=== PATIENT | female | born 1995 | race Caucasian/White ===

== ENCOUNTER 2024-08-06 15:06 | Inpatient (IN) | payer OTHER ==
[~2024-08-06] VITALS: Ht 170.2 cm; Wt 48.5 kg
[2024-08-06] MEDS ORDERED: METOCLOPRAMIDE HCL 10 MG/2 ML VIAL ONE (16:05)
[2024-08-06] MEDS ORDERED: KETOROLAC TROMETHAMINE 15 MG INJ ONE (16:05)
[2024-08-06] MEDS: METOCLOPRAMIDE HCL 10 MG/2 ML VIAL IV ONE (16:18)
[2024-08-06] MEDS: IV NORMAL SALINE 1000 ML BAG IV ONE ×2 (16:18→18:31)
[2024-08-06] MEDS: KETOROLAC TROMETHAMINE 15 MG INJ IVP ONE (16:19)
[2024-08-06 16:22] LABS: BASOPHILS % (AUTO) 0.5 % (0.0-2.0); EOSINOPHILS # (AUTO) 0.1 K/uL (0.0-0.7); EOSINOPHILS % (AUTO) 2.2 % (0.0-7.0); HEMATOCRIT 40.2 % (31.2-41.9); HEMOGLOBIN 13.4 g/dL (10.9-14.3); LYMPHOCYTES # (AUTO) 1.5 K/uL (0.8-4.8); LYMPHOCYTES % (AUTO) 26.5 % (20.5-51.5); MEAN CORPUSCULAR HEMOGLOBIN 31.8 uug (24.7-32.8); MEAN CORPUSCULAR HGB CONC 34 g/dL (32.3-35.6); MONOCYTES # (AUTO) 0.8 K/uL (0.1-1.30); NEUTROPHILS # (AUTO) 3.3 K/uL (1.8-8.9); NEUTROPHILS % (AUTO) 56.8 % (38.5-71.5); PLATELET COUNT (AUTO) 197 K/uL (179-408); RED BLOOD CELL COUNT(AUTO) 4.23 MIL/uL (3.63-4.92); RED CELL DISTRIBUTION WIDTH 12.5 % (12.3-17.7); WHITE BLOOD COUNT (AUTO) 5.8 K/uL (3.8-11.8)
[2024-08-06 16:31] LABS: CALCIUM 8.6 mg/dL (8.5-10.1); CARBON DIOXIDE 31 mmol/L (21-32); CHLORIDE 101 mmol/L (98-107); CREATININE 0.7 mg/dL (0.6-1.3); GLUCOSE 109 mg/dL (74-106); POTASSIUM 4.3 mmol/L (3.5-5.1); SODIUM SERUM 138 mmol/L (136-145); UREA NITROGEN, BLOOD 11 mg/dL (7-18)
[2024-08-06 16:36] LABS: DIFFERENTIAL COMMENT 1
[2024-08-06 16:44] LABS: ALANINE AMINOTRANSFERASE 198 U/L (14-59); ALBUMIN 3.8 g/dL (3.4-5.0); ALKALINE PHOSPHATASE 59 U/L (50-136); ASPARTATE AMINOTRANSFERASE 213 U/L (15-37); BILIRUBIN,DIRECT 0.2 mg/dL (0.0-0.2); BILIRUBIN,TOTAL 0.4 mg/dL (0.2-1.0); NT-PRO BNP 108 pg/mL (0-125)
[2024-08-06] MEDS ORDERED: ACETAMINOPHEN 500 MG TABLET ONE (16:45)
[2024-08-06] MEDS: ACETAMINOPHEN 500 MG TABLET PO ONE (16:47)
[2024-08-06 17:38] LABS: *BILIRUBIN,URIN NEGATIVE (NEGATIVE); *BLOOD, URINE NEGATIVE (NEGATIVE); *CLARITY,URINE CLEAR (CLEAR); *COLOR,URINE YELLOW (YELLOW); *KETONES,URINE NEGATIVE (NEGATIVE); *PROTEIN,URINE NEGATIVE (NEGATIVE); *UROBILINOGEN,URINE 0.2 E.U./dl (NORMAL); LEUKOCYTE ESTERASE ,URINE TRACE (NEGATIVE); NITRITE, URINE NEGATIVE (NEGATIVE); UGLUCOSE NEGATIVE (NEGATIVE)
[2024-08-06] MEDS ORDERED: ONDANSETRON 4 MG/2 ML VIAL ONE (17:51)
[2024-08-06 17:58] LABS: BACTERIA,URINE MODERATE /HPF (NONE SEEN); SQUAMOUS EPITHELIAL CELL,UR MODERATE /HPF (NONE SEEN); WBC,URINE 0-3 /HPF (0-3)
[2024-08-06] MEDS: ONDANSETRON 4 MG/2 ML VIAL IV ONE (17:59)
[2024-08-06] MEDS ORDERED: SWABABLE VALVE TRANSFER SET EA MC ONE (18:15)
[2024-08-06] MEDS ORDERED: IOHEXOL 350 100 ML INFUS..BTL ONE (18:15)
[2024-08-06] MEDS ORDERED: IV NORMAL SALINE 250 ML IV ONE (18:16)
[2024-08-06] MEDS ORDERED: HEPARIN SODIUM,PORCINE 5,000 UNITS/ML VIAL ONE (19:48)
[2024-08-06] MEDS ORDERED: HEPARIN/D5W DRIP 500 ML ONE (19:49)
[2024-08-06] MEDS ORDERED: BALS750C7 PO (19:51)
[2024-08-06] MEDS ORDERED: MESA10007 RC (19:51)
[2024-08-06] MEDS: HEPARIN SODIUM,PORCINE/PF 500 UNIT/5 ML SYR XX ONE (19:55)
[2024-08-06] MEDS: HEPARIN/D5W DRIP 500 ML IV STA (19:55)
[2024-08-06] MEDS ORDERED: ENOXAPARIN SODIUM 40 MG/0.4 ML DISP.SYRIN SQ ONE (20:20)
[2024-08-06] MEDS ORDERED: ENOXAPARIN SODIUM 30 MG/0.3 ML DISP.SYRIN ONE (20:20)
[2024-08-06] MEDS: ENOXAPARIN SODIUM 80 MG/0.8 ML DISP.SYRIN SQ ONE (20:22)
[2024-08-06 21:40] LABS: HIV-1 p24 ANTIGEN NON REACTIVE (NONREACTIVE); HIV-1/2 ANTIBODY NON REACTIVE (NONREACTIVE)
[2024-08-06] MEDS ORDERED: MAGNESIUM HYDROXIDE 30 ML LIQUID UDC PO PRN (23:15)
[2024-08-06] MEDS ORDERED: HYDROCODONE/APAP 5-325MG TABLET PO PRN (23:15)
[2024-08-06] MEDS ORDERED: ONDANSETRON 4 MG/2 ML VIAL IV PRN (23:15)
[2024-08-06] MEDS ORDERED: ACETAMINOPHEN 325 MG TABLET PO PRN (23:15)
[2024-08-06 23:52] VITALS: O2SAT 95
[2024-08-07] VITALS (7 sets, daily range): BP systolic 106–119; BP diastolic 73–85; TEMP 97.4–98.5; O2SAT 85–100
[2024-08-07] MEDS: MELATONIN 3 MG TABLET PO SCH (00:07)
[2024-08-07] MEDS: PANTOPRAZOLE SODIUM 40 MG TABLET.DR PO SCH (06:19)
[2024-08-07 07:05] LABS: BASOPHILS % (AUTO) 0.5 % (0.0-2.0); EOSINOPHILS # (AUTO) 0.2 K/uL (0.0-0.7); EOSINOPHILS % (AUTO) 4.2 % (0.0-7.0); HEMATOCRIT 35.3 % (31.2-41.9); HEMOGLOBIN 12.1 g/dL (10.9-14.3); LYMPHOCYTES % (AUTO) 46.6 % (20.5-51.5); MEAN CORPUSCULAR HEMOGLOBIN 32.4 uug (24.7-32.8); MEAN CORPUSCULAR HGB CONC 34 g/dL (32.3-35.6); MONOCYTES # (AUTO) 0.6 K/uL (0.1-1.30); MONOCYTES % (AUTO) 12.8 % (0.0-11.0); NEUTROPHILS # (AUTO) 1.6 K/uL (1.8-8.9); NEUTROPHILS % (AUTO) 35.9 % (38.5-71.5); PLATELET COUNT (AUTO) 163 K/uL (179-408); RED BLOOD CELL COUNT(AUTO) 3.72 MIL/uL (3.63-4.92); RED CELL DISTRIBUTION WIDTH 12.3 % (12.3-17.7); WHITE BLOOD COUNT (AUTO) 4.4 K/uL (3.8-11.8)
[2024-08-07 07:24] LABS: DIFFERENTIAL COMMENT 1
[2024-08-07 07:26] LABS: ALBUMIN 3.4 g/dL (3.4-5.0); BILIRUBIN,TOTAL 0.3 mg/dL (0.2-1.0); CALCIUM 7.8 mg/dL (8.5-10.1); CREATININE 0.6 mg/dL (0.6-1.3); MAGNESIUM 2.7 mg/dL (1.8-2.4); TOTAL PROTEIN, SERUM 6.7 g/dL (6.4-8.2)
[2024-08-07 07:35] LABS: THYROID STIMULATING HORMONE 1.609 mIU/mL (0.358-3.740)
[2024-08-07] MEDS: ENOXAPARIN SODIUM 60 MG/0.6 ML DISP.SYRIN SQ SCH (08:53)
[2024-08-07 10:10] LABS: ABG BASE EXCESS 1.5 mmol/L (-2.0-3.0); ABG HCO3 25.5 mmol/L (21.0-28.0); ABG PCO2 37.9 mmHg (32.0-45.0); ABG PH 7.445 (7.350-7.450); ABG PO2 79.6 mmHg (83.0-108.0); ABG TOTAL HEMOGLOBIN 13.3 G/dL (12.0-16.0); AaDO2 96.2 mmHg; COHb 0.3 % (0.5-1.5); MetHb 0.1 % (0.0-1.5); O2Hb 96.5 % (94.0-98.0)
[2024-08-07] MEDS ORDERED: BALSALAZIDE DISODIUM PO SCH (17:00)
[2024-08-07] MEDS ORDERED: BALSALAZIDE 750 MG PO SCH (17:07)
[2024-08-07] MEDS: ENSURE ENLIVE (VAN) 240 ML LIQUID PO SCH (17:20)
[2024-08-07] MEDS: BALSALAZIDE 750 MG PO SCH (20:19)
[2024-08-07] MEDS ORDERED: IV NORMAL SALINE 250 ML IV ONE (22:09)
[2024-08-07] MEDS ORDERED: SWABABLE VALVE TRANSFER SET EA MC ONE (22:09)
[2024-08-07] MEDS ORDERED: IOHEXOL 300MG/ML 100 ML INFUS..BTL ONE (22:09)
[2024-08-08 00:41] VITALS: BP 118/73; TEMP 97.9; O2SAT 98
[2024-08-08 04:00] VITALS: BP 98/60; TEMP 98.1; O2SAT 97
[2024-08-08 07:02] LABS: BASOPHILS % (AUTO) 0.4 % (0.0-2.0); EOSINOPHILS # (AUTO) 0.2 K/uL (0.0-0.7); EOSINOPHILS % (AUTO) 4.8 % (0.0-7.0); HEMATOCRIT 38.6 % (31.2-41.9); HEMOGLOBIN 13.4 g/dL (10.9-14.3); LYMPHOCYTES # (AUTO) 1.9 K/uL (0.8-4.8); MEAN CORPUSCULAR HEMOGLOBIN 32.9 uug (24.7-32.8); MEAN CORPUSCULAR HGB CONC 35 g/dL (32.3-35.6); MEAN CORPUSCULAR VOLUME 94.6 fL (75.5-95.3); MONOCYTES # (AUTO) 0.4 K/uL (0.1-1.30); MONOCYTES % (AUTO) 9.5 % (0.0-11.0); NEUTROPHILS # (AUTO) 1.4 K/uL (1.8-8.9); NEUTROPHILS % (AUTO) 35.3 % (38.5-71.5); PLATELET COUNT (AUTO) 199 K/uL (179-408); RED BLOOD CELL COUNT(AUTO) 4.08 MIL/uL (3.63-4.92); RED CELL DISTRIBUTION WIDTH 12.4 % (12.3-17.7); WHITE BLOOD COUNT (AUTO) 3.9 K/uL (3.8-11.8)
[2024-08-08 07:11] LABS: DIFFERENTIAL COMMENT 1
[2024-08-08 07:14] LABS: ALANINE AMINOTRANSFERASE 132 U/L (14-59); ALBUMIN 3.8 g/dL (3.4-5.0); ALKALINE PHOSPHATASE 59 U/L (50-136); ASPARTATE AMINOTRANSFERASE 70 U/L (15-37); BILIRUBIN,DIRECT 0.1 mg/dL (0.0-0.2); BILIRUBIN,TOTAL 0.4 mg/dL (0.2-1.0); CALCIUM 8.8 mg/dL (8.5-10.1); CARBON DIOXIDE 31 mmol/L (21-32); CHLORIDE 105 mmol/L (98-107); CREATININE 0.8 mg/dL (0.6-1.3); GLUCOSE 92 mg/dL (74-106); MAGNESIUM 2.7 mg/dL (1.8-2.4); PHOSPHOROUS 4.1 mg/dL (2.5-4.9); POTASSIUM 3.5 mmol/L (3.5-5.1); SODIUM SERUM 141 mmol/L (136-145); TOTAL PROTEIN, SERUM 8.1 g/dL (6.4-8.2); UREA NITROGEN, BLOOD 6 mg/dL (7-18)
[2024-08-08 07:17] LABS: C-REACTIVE PROTEIN < 0.10 mg/dL (0.00-0.30)
[2024-08-08 07:34] VITALS: BP 121/83; TEMP 98.1; O2SAT 100
[2024-08-08] MEDS: APIXABAN 5 MG TABLET PO SCH (09:00)
[2024-08-08] MEDS ORDERED: APIX5TAB PO (10:58)
[2024-08-08 11:34] VITALS: BP 121/82; TEMP 97.8; O2SAT 97
[2024-08-09 18:06] LABS: *PROTEIN S FREE 63 % (61-136)
[2024-08-09 19:08] LABS: ADENOVIRUS Not Detected (Not Detected); CORONAVIRUS 229E Not Detected (Not Detected); CORONAVIRUS HKU1 Not Detected (Not Detected); CORONAVIRUS NL63 Not Detected (Not Detected); CORONAVIRUS OC43 Not Detected (Not Detected); NP BORDETELLA PERTUSIS Not Detected (Not Detected); NP CHLAMYDOPHILA PNEUMONIAE Not Detected (Not Detected); NP HUMAN METAPNEUMOVIRUS Not Detected (Not Detected); NP HUMAN RHINO/ENTERO VIRUS Not Detected (Not Detected); NP INFLUENZA A Not Detected (Not Detected); NP INFLUENZA A/H1 Not Detected (Not Detected); NP INFLUENZA A/H1-2009 Not Detected (Not Detected); NP INFLUENZA A/H3 Not Detected (Not Detected); NP INFLUENZA B Not Detected (Not Detected); NP MYCOPLASMA PNEUMONIAE Not Detected (Not Detected); NP PARAINFLUENZA 1 Not Detected (Not Detected); NP PARAINFLUENZA 2 Not Detected (Not Detected); NP PARAINFLUENZA 3 Not Detected (Not Detected); NP PARAINFLUENZA 4 Not Detected (Not Detected); NP RESPIRATORY SYNCYTIAL VIRUS Not Detected (Not Detected)
[2024-08-10 08:08] LABS: HOMOCYSTEINE, PLASMA 15.9 umol/L (0.0-14.5)
== END 2024-08-08 13:45 | disposition home or self-care (01) | DRG 175 ==
LOC: ER 15:06 → DOU3 21:33 → TELE3 22:20
PROVIDERS: ADMIT Nurse Practitioner Family; ATTEND Internal Medicine
DX: I26.99 Other pulmonary embolism without acute cor pulmonale (principal); J96.01 Acute respiratory failure with hypoxia; K51.90 Ulcerative colitis, unspecified, without complications; E87.0 Hyperosmolality and hypernatremia; E86.0 Dehydration; R91.1 Solitary pulmonary nodule; Z79.899 Other long term (current) drug therapy; R74.01 Elevation of levels of liver transaminase levels; K52.9 Noninfective gastroenteritis and colitis, unspecified; W94.0XXA Exposure to prolonged high air pressure, initial encounter; Y93.89 Activity, other specified; Y92.89 Other specified places as the place of occurrence of the external cause; J20.8 Acute bronchitis due to other specified organisms; D69.6 Thrombocytopenia, unspecified; E83.42 Hypomagnesemia; E83.51 Hypocalcemia; Z80.51 Family history of malignant neoplasm of kidney; M89.8X9 Other specified disorders of bone, unspecified site
CPT/HCPCS: 36415; 36600; 70030-TC; 71045; 71275; 76705; 82803; 83090; 83690; 83735; 84100; 84443; 84484; 85025; 85305; 85613; 85730; 86140; 86403; 87070; 87536; 87806; 93307; 94760; A4606; A4663; A9150; G0378; J1644; J1650; J1885; J2405; J2765; J7040; Q9967